=== PATIENT | male | born 1950 | race Caucasian/White ===

== ENCOUNTER 2018-11-16 14:23 | Inpatient (IN) | payer OTHER ==
[2018-11-16] MEDS ORDERED: ONDANSETRON 4 MG/2 ML VIAL IVP PRN (15:11)
[2018-11-16] MEDS ORDERED: ONDANSETRON DISINTEGRATING 4 MG TAB PO PRN ×2 (15:11→16:15)
[2018-11-16] MEDS ORDERED: HYDROmorphONE/DILAUDID 1 MG/ML INJ IVP PRN (15:11)
[2018-11-16] MEDS ORDERED: ACETAMINOPHEN 325 MG TAB PO PRN (15:11)
[2018-11-16] MEDS ORDERED: oxyCODONE IR 5 MG TAB PO PRN (15:11)
[2018-11-16] MEDS ORDERED: NS 1,000 ML IV ONE (15:18)
--- NOTE | 2018-11-16 15:58 | ASMTCMCOM ---
CM Note CM Note Notes: Patient is a direct admit form [facility] with diagnosis of pancreatic cancer with metastatic disease. Plan of care unclear at this time. CM to follow for needs. Plan: TBD Date Signed: 11/16/2018 03:57 PM Electronically Signed By:Peg Chou RN
[2018-11-16] MEDS ORDERED: traMADol 50 MG TAB PO PRN (16:17)
--- NOTE | 2018-11-16 16:17 | PDGENHP ---
History and Physical - Chief Complaint transfer from [facility] for inability to tolerate PO - History of Present Illness 68yo M with history of recently diagnosed metastatic pancreatic cancer not yet on therapy presents from [facility] for worsening nausea/vomiting, inability to tolerate PO, and abdominal distention. Sees Dr Hanson who sent him for direct admission due to severity of symptoms. Diagnosed mid-October. Had ERCP around that time with covered metal stent placement in common bile duct. Hasn't really thrived since that time. Very minimal PO intake. Anything he eats causes nausea and vomiting and abdominal pain. No fevers or chills. Last BM yesterday. No diarrhea. He discontinued his MS contin about a week ago as it wasn't helping. He became very itchy with oxycodone and was using tramadol instead to moderate effect. He has been taking zofran and phenergan with some relief of his nausea. His abdomen has become more distended over the last few days. No leg swelling. He does report 2 episodes of syncope which he thinks are related to dehydration. On arrival to , his initial BP was 71/40. He is not tachycardic and does not feel dizzy while sitting in bed. He is being bolused 2L of NS. History Information - Allergies/Home Medication List Allergies/Adverse Reactions: No Allergies [NKDA] Allergy (Verified 11/16/18 15:11) Home Medications: Aspirin EC [Aspirin EC 81 mg (*)] 81 mg PO HS 11/16/18 [Last Taken Unknown] Doxazosin Mesylate 8 mg PO HS 11/16/18 [Last Taken 11/15/18] Lisinopril [Zestril 5 mg (*)] 5 mg PO DAILY 11/16/18 [Last Taken 11/15/18] Mirtazapine 15 mg PO HS 11/16/18 [Last Taken 11/15/18] Multivitamins [Multivitamin (*)] 1 each PO DAILY 11/16/18 [Last Taken Unknown] Ondansetron Odt [Zofran Odt 4 mg (*)] 4 - 8 mg PO Q12 PRN 11/16/18 [Last Taken Unknown] traMADol [Ultram 50 mg (*)] 50 mg PO Q4 PRN 11/16/18 [Last Taken Unknown] I have personally reviewed and updated: family history, medical history, social history, surgical history - Past Medical History Additional medical history: metastatic pancreatic cancer (diagnosed 10/2018), HTN , BPH - Surgical History Additional surgical history: cholecystectomy, CBD stent placement (10/2018) - Family History Additional family history: No history of malignancy. - Social History Smoking Status: Former smoker Alcohol Use: None Drug Use: None Additional social history: Single, lives with his son who is 33. Doris villarreal. Review of Systems Review of Systems: ROS: 10pt was reviewed & negative except for what was stated in HPI & below Physical Exam Physical Exam: Temp Pulse Resp BP Pulse Ox 36.9 C 90 18 71/42 L 95 11/16/18 15:23 11/16/18 15:23 11/16/18 15:23 11/16/18 15:23 11/16/18 15:23 Constitutional: uncomfortable, cachectic Eyes: PERRL, EOMI, icteric sclera Ears, Nose, Mouth, Throat: dry mucous membranes Cardiovascular: regular rate and rhythym, no murmur, rub, or gallop, No edema Respiratory: no respiratory distress, no rales or rhonchi Gastrointestinal: tenderness, ascites, distension Genitourinary: no bladder fullness, no bladder tenderness Skin: no rashes or abrasions, other (jaundiced) Musculoskeletal: full muscle strength Neurologic: AAOx3 Psychiatric: interacting appropriately Lab Data & Imaging Review 11/16/18 16:40 11/16/18 16:40 Assessment & Plan Assessment: 68yo M with history of recently diagnosed metastatic pancreatic cancer not yet on therapy presents from [facility] for worsening nausea/vomiting, inability to tolerate PO, and abdominal distention. Plan: 1. Abdominal distention, N/V: Likely due to progression of malignancy. Query biliary obstruction vs gastric outlet obstruction vs symptomatic ascites. - CBC, CMP, lipase - Abdominal US - Ordered therapeutic paracentesis, consider diuretics moving forward - Pending above diagnostics, may need GI consult 2. Hypotension: Strongly suspect this is due to hypovolemia. Low concern for sepsis. - 2L NS bolus, mIVF thereafter - Check lactate 3. Metastatic pancreatic cancer: Followed by Dr Hanson, hasn't started therapy - His malignancy seems to progressing quickly. Would be appropriate for palliative care 4. HTN: Holding home lisinopril. 5. BPH: Hold doxazosin with borderline BPs. VTE ppx: SCDs Diet: regular Code: DNR per discussion with patient Dispo: Admit under observation
[2018-11-16 16:53] LABS: PLATELET COUNT 303 10^3/uL (150-400)
[2018-11-16] MEDS ORDERED: HYDROmorphONE/DILAUDID 2 MG/ML INJ IVP PRN (18:30)
[2018-11-16] MEDS: ONDANSETRON 4 MG/2 ML VIAL IVP PRN (19:28)
[2018-11-16] MEDS: MIRTAZAPINE 15 MG TAB PO SCH (21:31)
[2018-11-16] MEDS: BACLOFEN 10 MG TAB PO PRN (21:31)
[2018-11-17] MEDS ORDERED: diphenhydrAMINE 25 MG CAP PO PRN (00:43)
[2018-11-17] MEDS ORDERED: ALBUMIN 5% 500 ML IV ONE (00:52)
[2018-11-17] MEDS: NS 1,000 ML IV SCH ×3 (00:57→23:10)
[2018-11-17] MEDS: MELATONIN 3 MG TAB PO SCH ×2 (02:43→20:43)
[2018-11-17] MEDS: METHYL SALICYLATE/MENTHOL OINTMENT TP PRN ×3 (04:17→18:10)
[2018-11-17] MEDS: HYDROmorphONE/DILAUDID 1 MG/ML INJ IVP PRN (06:06)
[2018-11-17 08:50] LABS: INR 1.9 (0.83-1.16); PROTIME(PATIENT) 21.9 SEC (12.0-15.0)
--- NOTE | 2018-11-17 13:14 | HOSPPROG ---
Hospitalist Progress Note Assessment/Plan: 68 yo M w pancreatic cancer a/w weakness, hypotension and CINDY cindy: no hydro on R, will check L suspect ongoing hypotension prescribed doxazosin and lisinopril as outpt, has been taking intermittently this is contributing to severity of kidney injury denies NSAIDS 24 hours of q6 25% albumin check L kidney for hydro (unlikely) pancreatic CA: new dx liver mets has not started chemo trajectory of renal failure will likley impact treatment choices weakness: poor po intacke organ failure ascites: concern for malignant looks like studies not sent suspect will reaccumultae- can send then leukocytosis: has had some chills check blood cx dispo: inpt Subjective: case d/w dr proctor Objective: Vital Signs Temp Pulse Resp BP Pulse Ox 36.2 C 96 16 94/44 L 95 11/17/18 12:26 11/17/18 12:26 11/17/18 12:26 11/17/18 12:26 11/17/18 12:26 Laboratory Results 11/17/18 04:46 11/17/18 04:46 11/16/18 11/17/18 11/18/18 05:59 05:59 05:59 Intake Total 150 1664 Output Total 3600 Balance 150 -1936 PT 21.9 SEC (12.0-15.0) H 11/17/18 08:25 INR 1.90 (0.83-1.16) H 11/17/18 08:25 - Physical Exam Constitutional: no apparent distress, appears nourished Eyes: PERRL, anicteric sclera Ears, Nose, Mouth, Throat: moist mucous membranes, hearing normal Cardiovascular: regular rate and rhythym, no murmur, rub, or gallop Respiratory: no respiratory distress, no rales or rhonchi Gastrointestinal: normoactive bowel sounds, soft, non-tender abdomen, ascites Genitourinary: no bladder fullness, No quinn in urethra Skin: warm, normal color Musculoskeletal: full muscle strength, no muscle tenderness Neurologic: AAOx3 Psychiatric: interacting appropriately
--- NOTE | 2018-11-17 13:49 | GCON ---
[f rep st] CONSULTATION ONCOLOGY FOLLOWUP CONSULTATION DATE OF CONSULTATION: 11/17/2018 REFERRING PHYSICIAN: Reynold Muñoz MD REASON FOR CONSULTATION: Ongoing management of metastatic pancreatic carcinoma. RECOMMENDATIONS: 1. Agree with intravenous albumin and fluids to attempt to improve renal function. 2. Agree with paracentesis for comfort measures for comfort and in attempt to improve the patient's appetite. 3. Agree with Palliative Care consultation. 4. Whether or not the patient is a candidate for systemic therapy will depend on his overall functio nal status and underlying organ function. At the moment, his liver function seems to have improved w ith the stent placement, but his acute renal failure is an issue at this time. 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 He had biliary obstruction at the time of diagnosis. His bilirubin was 18 and he required an internal stent placement. His bilirubin has come down to 4, but in the interim, his creatinine darden s gone from 0.8 to 5.8. He has not yet been treated for his metastatic cancer. We have been trying to optimize his underlying functional status prior to initiating therapy. He was seen in the office yesterday. He was found to be hypotensive, and not eating and drinking; th erefore, he was brought to [facility] for further evaluation. His blood pressure was found to be 70/40. He is given fluids and was also found to have significant ascites. His ascites was tapped today and the patient actually feels fairly good afterwards and is beginning to have some hunger. However, the biggest current challenge is his renal failure. His creatinine unfortunately e jorge with fluids has gone from 5.2- to 5.8 while in the hospital overnight. If this does not improve and his functional status is not improve adequately, it may be very difficult to give him even pallia tive therapy. This will be an ongoing discussion with the patient as the clinical situation develops over the next couple of days. HISTORY OF PRESENT ILLNESS: Please see assessment. PAST MEDICAL HISTORY: Otherwise is remarkable for hypertension. PREVIOUS SURGERIES: Include cholecystectomy. FAMILY HISTORY: Negative for malignancy. SOCIAL HISTORY: He lives with his son. 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 REVIEW OF SYSTEMS: Remarkable for decreased appetite, jaundice, nausea, abdominal distention, and ge neralized weakness. His 10 system review is, otherwise, unremarkable. PHYSICAL EXAMINATION: GENERAL: Reveals a well-developed, slightly jaundiced white male who is alert and communicating effectively. HEENT: Remarkable for mild jaundice. LUNGS: Show no rales or rhon chi today. CARDIAC: Shows regular rhythm. ABDOMEN: Abdominal exam shows distention. There is a f luid wave noted, but he does not have tense ascites at this time. NEUROLOGIC: Nonfocal. LABORATORY EXAM: Today shows a sodium of 129, potassium of 5.6, creatinine of 5.8. Total bilirubin of 4.6, with alkaline phosphatase at 216, SGOT and SGPT of 78 and 76. His albumin is low at 2.8. Hi s CBC shows a white count of 22,250 with a hemoglobin of 9.9 and a platelet count of 293,000. His IN R is 1.9. He is not anticoagulated. Thank you very much for allowing me to participate in this pleasant gentleman's oncologic care. We l lillianaok forward to assisting with management during his hospitalization and beyond. /[id number]/MODL
[2018-11-17] MEDS: ALBUMIN 25% 100 ML IV SCH ×3 (13:55→23:10)
[2018-11-17] MEDS ORDERED: traMADol 50 MG TAB PO PRN (13:58)
[2018-11-17] MEDS: ONDANSETRON 4 MG/2 ML VIAL IVP PRN ×2 (15:58→20:42)
[2018-11-17] MEDS: BACLOFEN 10 MG TAB PO PRN (18:12)
--- NOTE | 2018-11-17 18:21 | PDMN ---
Medical Necessity Medical necessity: Change to inpt as of 11/17/18 @ 18:07, meets inpt criteria per MD order and [facility] M-326, Renal Failure, Acute, 3 days. 68 y/o w/metatstatic pancreatic cancer admitted w/abd distention, N/V, hypotension, and CINDY (BUN/ creatinine 89/5.2 on admit), hyponatremia, and hyperkalemia. Upgraded to inpt for further management of above: IV albumin, paracentesis, BUN/creatinine trending up today, persistent hyponatremia and hyperkalemia. Est LOS>2MN for ongoing eval/management of above.
[2018-11-17] MEDS: MIRTAZAPINE 15 MG TAB PO SCH (20:43)
[2018-11-18] MEDS: HYDROmorphONE/DILAUDID 1 MG/ML INJ IVP PRN ×9 (02:37→20:13)
[2018-11-18] MEDS: ALBUMIN 25% 100 ML IV SCH (05:07)
[2018-11-18 05:41] LABS: PLATELET COUNT 315 10^3/uL (150-400)
[2018-11-18] MEDS: LORazepam 2 MG/ML INJ IVP PRN ×2 (09:53→20:13)
--- NOTE | 2018-11-18 10:10 | HOSPPROG ---
Hospitalist Progress Note Assessment/Plan: 68 yo M w pancreatic cancer a/w weakness, hypotension and CINDY cindy: no hydro on R, will check L suspect ongoing hypotension prescribed doxazosin and lisinopril as outpt, has been taking intermittently this is contributing to severity of kidney injury denies NSAIDS 24 hours of q6 25% albumin L kidney w no hydro 2/7- cr increased despite volume challenge 1. place quinn 2. telemetry 3. dc IVF 4. Urine lytes 5. renal to see abdominal pain: plain film (interp by me) w no free air and ascites exam concerning suspect etiology is rapidly reaccumulated ascites in lght of volume resuscitation hold para given risk for hypotension will repeat CT w po contrast surgical eval npo hyperkalemia: check ekg telemetry follow pancreatic CA: new dx liver mets has not started chemo trajectory of renal failure will likley impact treatment choices weakness: poor po intacke organ failure ascites: concern for malignant looks like studies not sent suspect will reaccumultae- can send then leukocytosis: has had some chills check blood cx dispo: inpt 45 min crit care patient has declined considerably today he is actively dying [facility] can take tomorrow if he survives the evening, which is not guaranteed comfort care discussed w son Subjective: surprisingly, cr increased overnight. abdominal pain. minimal UOP. case d/w saira arthur and liana Objective: Vital Signs Temp Pulse Resp BP Pulse Ox 36.3 C 105 H 20 96/62 L 96 11/18/18 03:48 11/18/18 08:25 11/18/18 08:25 11/18/18 08:25 11/18/18 08:25 Laboratory Results 11/18/18 05:20 11/18/18 05:20 11/17/18 11/18/18 11/19/18 05:59 05:59 05:59 Intake Total 150 4833 Output Total 3650 Balance 150 1183 PT 21.9 SEC (12.0-15.0) H 11/17/18 08:25 INR 1.90 (0.83-1.16) H 11/17/18 08:25 - Physical Exam Constitutional: No no apparent distress, No not in pain Eyes: PERRL, anicteric sclera Ears, Nose, Mouth, Throat: moist mucous membranes, hearing normal Cardiovascular: no murmur, rub, or gallop, tachycardia Respiratory: no respiratory distress, other (tachycpneic, clear) Gastrointestinal: distension, other (distended, firm w v hypoactive bowel sounds ), No normoactive bowel sounds Genitourinary: no bladder fullness, No quinn in urethra Skin: warm, normal color Musculoskeletal: full muscle strength Neurologic: AAOx3 Psychiatric: interacting appropriately Lymph, Heme, Immunologic: no cervical LAD ICD10 Worksheet Patient Problems: Problems Problem Status Onset Pancreatic adenocarcinoma Acute Renal failure Acute
[2018-11-18] MEDS ORDERED: ERTAPENEM 1 GM in NS 100 ML IV SCH (12:15)
--- NOTE | 2018-11-18 13:36 | SOAPPROG ---
SOAP Progress Note Assessment/Plan: Assessment: - Metastatic pancreatic cancer - untreated, but patient's performance status precludes treatment at this time - Renal failure - he is now nearly anuric with rising creatinine (now ~6) despite fluids and albumin - Obtunded I think Minh is in the active dying process. Best supportive care/hospice/ comfort measures is most appropriate. Minh discussed his wishes to avoid intubation/CPR with me yesterday. I confirmed this with his son Joao today who I spoke with at the bedside. A friend of the family who is a nurse was also present. Plan: I would recommend best supportive care/comfort measures/hospice and no further aggressive interventions. Objective: Vital Signs Temp Pulse Resp BP Pulse Ox 35.9 C L 102 H 18 90/62 L 97 11/18/18 11:49 11/18/18 13:07 11/18/18 13:07 11/18/18 13:07 11/18/18 13:07 Laboratory Results 11/18/18 05:20 11/18/18 05:20 11/16/18 11/17/18 11/18/18 23:59 23:59 23:59 Intake Total 100 3714 1169 Output Total 3600 90 Balance 084 192 5806 PT 21.9 SEC (12.0-15.0) H 11/17/18 08:25 INR 1.90 (0.83-1.16) H 11/17/18 08:25 Physical Exam - Physical Exam General Appearance: unresponsive Respiratory: rhonchi (scattered) Abdomen: distended Extremities: swelling (bilateral) ICD10 Worksheet Patient Problems: Problems Problem Status Onset Renal failure Acute Pancreatic adenocarcinoma Acute
--- NOTE | 2018-11-18 13:40 | ASMTCMCOM ---
CM Note CM Note Notes: Today patient designated his son Tyrone as MDPOA. His friend Nu - who is in town from [place] - is the alternate. [facility] Palliative and [facility] met with patient, son, and friend today. They report that patient would qualify for GIP, either at care center or SNF. Family wants to hear prognosis from Oncology before making a decision. Patient is known to Traci Raymond, onc navigator. Case Management will follow. Current CM Discharge plan: TBD Date Signed: 11/18/2018 01:39 PM Electronically Signed By:Della Villegas RN
[2018-11-18] MEDS ORDERED: LIDOCAINE 1% 300 MG/30 ML SDV ONE (14:14)
--- NOTE | 2018-11-18 17:12 | ASMTCMCOM ---
CM Note CM Note Notes: Family requested a visit from [facility]; [facility]TT [facility]ton came for eval and accepted patient for inpatient care center. However, after talking w hospitalist, it was determined that patient is too unstable for transport. [facility] will follow in AM to see if patient is stable for transfer to care center. [place] [facility] Palliative updated. CM will follow. Current CM Discharge plan: [facility] inpatient care center Date Signed: 11/18/2018 05:11 PM Electronically Signed By:Della Villegas RN
[2018-11-18] MEDS: MIRTAZAPINE 15 MG TAB PO SCH (20:02)
[2018-11-18] MEDS: MELATONIN 3 MG TAB PO SCH (20:02)
[2018-11-18 20:17] VITALS: BP 81/52
[2018-11-18] MEDS ORDERED: ATROPINE 1% 5 ML OPHT.BTL SL PRN (23:09)
[2018-11-19] MEDS: HYDROmorphONE/DILAUDID 1 MG/ML INJ IVP PRN (01:31)
[2018-11-19] MEDS: LORazepam 2 MG/ML INJ IVP PRN (02:13)
[2018-11-19] MEDS ORDERED: morphINE 10 MG/0.5 ML UDSYR PO PRN (04:40)
--- NOTE | 2018-11-19 07:33 | HOSPPROG ---
Hospitalist Progress Note Assessment/Plan: [ Patient on comfort measures overnight. Developed sudden hypoxia and subsequent pulselessness. TOD declared by two RN at 0440. I was notified shortly there after. Patient friend was at bedside and son arrived shortly after. [employer] called. Objective: Vital Signs Temp Pulse Resp BP Pulse Ox 36.4 C 110 H 18 81/52 L 93 11/18/18 20:00 11/18/18 20:00 11/18/18 20:00 11/18/18 20:00 11/18/18 20:00 Microbiology 11/18/18 05:20 Blood Panel (PCR) - Final Blood Escherichia Coli Laboratory Results 11/18/18 05:20 11/18/18 05:20 11/18/18 11/19/18 11/20/18 05:59 05:59 05:59 Intake Total 4833 10 Output Total 3650 90 Balance 1183 -80 PT 21.9 SEC (12.0-15.0) H 11/17/18 08:25 INR 1.90 (0.83-1.16) H 11/17/18 08:25 ICD10 Worksheet Patient Problems: Problems Problem Status Onset Pancreatic adenocarcinoma Acute Renal failure Acute
--- NOTE | 2018-11-21 09:54 | ASDISCHSUM ---
Discharge Information Plan Status: Medically Cleared to Leave: Discharge Date:11/19/2018 09:15 AM CM D/C Disposition: ADT D/C Disposition: Projected Discharge Date:11/19/2018 11:00 AM Transportation at D/C: Discharge Delay Reason: Follow-Up Date:11/19/2018 11:00 AM Discharge Slot: Final Diagnosis: Placement Information Referral Type:Palliative Care Referral ID:[id number] Provider Name: Address 1: Phone Number: Address 2: Fax Number: City: Selection Factors: State: Referral Type:*Hospice Referral ID:[id number] Provider Name: Address 1: Phone Number: Address 2: Fax Number: City: Selection Factors: State: Patient Contact Information Contact Name:DANITA Relationship: Address: Home Phone: Work Phone: City: Alternate Phone: [facility] Code: Email: Financial Information Financial Class:Medicare Advantage Plans Primary Plan Desc:[facility] ADVANTAGE PLANS Primary Plan Number:[id number] Secondary Plan Desc: Secondary Plan Number: Assessment Information [facility] CM Progress Note CM Note CM Note Notes: Patient is a direct admit form [facility] with diagnosis of pancreatic cancer with metastatic disease. Plan of care unclear at this time. CM to follow for needs. Plan: TBD Date Signed: 11/16/2018 03:57 PM Electronically Signed By:Peg Chou RN [facility] CM Progress Note CM Note CM Note Notes: Today patient designated his son Tyrone as MDPOA. His friend Nu - who is in town from [place] - is the alternate. [facility] Palliative and [facility] met with patient, son, and friend today. They report that patient would qualify for GIP, either at care center or SNF. Family wants to hear prognosis from Oncology before making a decision. Patient is known to Traci Raymond, onc navigator. Case Management will follow. Current CM Discharge plan: TBD Date Signed: 11/18/2018 01:39 PM Electronically Signed By:Della Villegas RN [facility] CM Progress Note CM Note CM Note Notes: Family requested a visit from [facility]; BRE[facility] Felton came for eval and accepted patient for inpatient care center. However, after talking w hospitalist, it was determined that patient is too unstable for transport. [facility] will follow in AM to see if patient is stable for transfer to care center. [place] [facility] Palliative updated. CM will follow. Current CM Discharge plan: [facility] inpatient care center Date Signed: 11/18/2018 05:11 PM Electronically Signed By:Della Villegas RN Intervention Information
== END 2018-11-19 09:15 | disposition expired | DRG 436 ==
LOC: F1N 15:06 → OBSVTOIN 11-17 18:07
PROVIDERS: ADMIT Internal Medicine; ATTEND Internal Medicine
PROC: 0W9G3ZZ Drainage of Peritoneal Cavity, Percutaneous Approach (ICD-10-PCS; principal; 2018-11-17)
DX: C25.9 Malignant neoplasm of pancreas, unspecified (principal); C78.7 Secondary malignant neoplasm of liver and intrahepatic bile duct; N17.9 Acute kidney failure, unspecified; E87.2 Acidosis; E87.1 Hypo-osmolality and hyponatremia; R18.8 Other ascites; R09.02 Hypoxemia; E87.5 Hyperkalemia; I10 Essential (primary) hypertension; N40.0 Benign prostatic hyperplasia without lower urinary tract symptoms; Z87.891 Personal history of nicotine dependence; Z51.5 Encounter for palliative care
CPT/HCPCS: 97165-GO; 97535-GO; G0378; J1170; J1200; J1335; J2060; J2405; P9041; P9047